=== PATIENT | male | born 1955 | race Hispanic/Latino ===

== ENCOUNTER → 2024-01-24 | Outpatient (CLI) | payer MEDICARE ==
[~2024-01-24] MED LIST: ASPI-1197 PO; ATEN50TA PO; ATOR10 PO; AZIT250T9 PO; CLOP75TA32 PO; EMPA25TA PO; GLIP10TA9 PO; ICOS1CAP PO; INSU100V37 SQ; ISOS30TA11 PO; METF-446 PO; OMEP40CA21 PO; PIOG30TA70 PO; RANO500T2 PO; SACU1TAB PO; SEMA2PEN SQ; VERI2.5T PO
== END | disposition home or self-care (01) ==
LOC: RAH 10:10
PROVIDERS: ATTEND Internal Medicine Gastroenterology
DX: K30 Functional dyspepsia (principal); R11.0 Nausea; R10.10 Upper abdominal pain, unspecified; R14.2 Eructation
CPT/HCPCS: 78264; A9541

== ENCOUNTER 2024-10-27 20:27 | Emergency (ER) | payer MEDICARE ==
[~2024-10-27] VITALS: Ht 170.2 cm; Wt 119.7 kg
[~2024-10-27 20:27] MED LIST changes: +GLIP10TA16 PO; -GLIP10TA9 PO
[2024-10-27 21:10] LABS: BASOPHILS # (AUTO) 0.03 K/uL (0.00-0.20); BASOPHILS % (AUTO) 0.2 % (0.0-5.0); IMMATURE GRANULOCYTE ABSOLUTE 0.06 K/uL (0-1); LYMPHOCYTES # (AUTO) 1.4 K/uL (1.0-4.8); LYMPHOCYTES % (AUTO) 9.1 % (21.0-51.0); MEAN CORPUSCULAR VOLUME 93.7 fL (79-99); MONOCYTES # (AUTO) 0.9 K/uL (0.1-1.0); MONOCYTES % (AUTO) 5.9 % (3.0-13.0); NEUTROPHILS # (AUTO) 12.6 K/uL (1.8-7.7); NEUTROPHILS % (AUTO) 84.4 % (40.0-77.0); PLATELET COUNT (AUTO) 201 K/uL (130-400); RED BLOOD CELL COUNT(AUTO) 4.91 MIL/uL (4.50-6.20); RED CELL DISTRIBUTION WIDTH 12.8 % (11.0-15.5)
[2024-10-27 21:19] LABS: CREATININE 0.8 mg/dL (0.5-1.3); POTASSIUM 4.2 mmol/L (3.5-5.1)
[2024-10-27 21:23] LABS: ALBUMIN 3.5 g/dL (3.5-5.0); BILIRUBIN,TOTAL 0.7 mg/dL (0.2-1.0); TOTAL PROTEIN, SERUM 7.8 g/dL (6.0-8.3)
--- NOTE | 2024-10-27 21:41 | ERN ---
General Chief Complaint: Shortness of Breath Stated Complaint: SENT BY Time Seen by MD: 20:34 History of Present Illness Initial Comments Patient is sent over here by his primary care physician for shortness of breath. Patient himself feels like he has no chest pain he has no difficulty breathing and he does not think that he is having a problem with his heart. He has had nausea and diarrhea but no emesis. He said it started this morning after he ate something that disagreed with him. No fevers no chills no change in urination. Patient here in the emergency room is tachycardic to 107. Allergies: Coded Allergies: No Known Allergies (Unverified Allergy, Unknown, 10/27/24) Home Meds Reported Medications Glipizide (Glipizide) 10 Mg Tablet, 10 MG PO BID, TAB 11/19/23 Insulin Degludec (Tresiba) 100 Unit/Ml Vial, 100 UNIT SQ AM, VIAL 11/19/23 Semaglutide (Ozempic) 2 Mg/0.75 Ml (8 Mg/3 Ml) Pen.injctr, 2 MG SQ QWEEK 11/19/23 Azithromycin (Azithromycin) 250 Mg Tablet, 250 MG PO AM, TAB 24 Aspirin (Aspirin) 81 Mg Tab.chew, 81 MG PO AM, TAB.CHEW 11/19/23 Icosapent Ethyl (Vascepa) 1 Gram Capsule, 1 GM PO BID, CAP 11/19/23 Omeprazole (Omeprazole) 40 Mg Capsule.dr, 40 MG PO PM, CAP 11/19/23 Vericiguat (Verquvo) 2.5 Mg Tablet, 2.5 MG PO AM, TAB 11/19/23 Empagliflozin (Jardiance) 25 Mg Tablet, 25 MG PO AM, TAB 24 Ranolazine (RANEXA) 500 Mg Tab.er.12h, 500 MG PO BID, TAB 24 Pioglitazone HCl (Pioglitazone HCl) 30 Mg Tablet, 30 MG PO AM, TAB 24 Atenolol (Atenolol) 50 Mg Tablet, 50 MG PO BID, TAB 24 Sacubitril/Valsartan (Entresto 24 mg-26 mg Tablet) 24 Mg-26 Mg Tablet, 1 EACH PO BID, TAB 24 Isosorbide Dinitrate (Isosorbide Dinitrate) 30 Mg Tablet, 30 MG PO AM, TAB 11/19/23 Atorvastatin Calcium (LIPITOR) 20 Mg Tab, 20 MG PO HS, TAB 11/19/23 Clopidogrel Bisulfate (Clopidogrel) 75 Mg Tablet, 75 MG PO AM, TAB 11/19/23 Metformin HCl (Metformin HCl) 1,000 Mg Tablet, 1000 MG PO BID, TAB 11/19/23 Past Medical History Past Medical History: Diabetes-Type II, High Cholesterol, Heart Disease, Hypertension, Other Medical History Other: QUADRUPLE BYPASS (2000) Past Surgical History: Pacer/AICD, Other Surgical History Other: QUADRUPLE BYPASS (2000) Constitutional: (+) chills, (+) fever EENTM: (-) eye pain, (-) blurred vision, (-) tearing, (-) double vision, (-) ear pain, (-) ear discharge, (-) nose pain, (-) nose congestion, (-) throat pain, (-) Throat swelling, (-) mouth pain, (-) tooth pain, (-) mouth swelling, (-) other documentation Respiratory: (-) cough, (-) orthopnea, (-) short of breath, (-) stridor, (-) wheezing, (-) other documentation Cardiovascular: (-) chest pain, (-) edema, (-) palpitations, (-) syncope, (-) dyspnea on exertion, (-) other documentation Gastrointestinal/Abdominal: (+) nausea, (+) diarrhea Physical Exam General Appearance: (+) mild distress Orientation: (+) alert, (+) oriented x 3 Head/Face Trauma: No Eye: bilateral eye normal inspection, bilateral eye PERRL, bilateral eye EOMI Ear, Nose, Throat: (+) hearing grossly normal, (+) normal ENT inspection, (+) moist mucous membraine Neck: (+) normal inspection, (+) supple, (+) full range of motion Respiratory: (+) chest non-tender, (+) lungs clear, (+) well ventilated Heart: (+) no gallop, (+) tachycardia Vascular: (+) no edema, (+) normal peripheral pulse Gastrointestinal: (+) soft, (+) non-tender, (+) bowel sound present Gastrointestinal Comment Hyperactive bowel sounds. Extremities: (+) normal range of motion, (+) non-tender, (+) normal inspection Results Laboratory and Microbiology Lab and Micro Result Laboratory Tests Test 10/27/24 21:01 10/27/24 21:07 10/27/24 22:02 White Blood Count 15.0 K/uL (4.8-10.8) H Red Blood Count 4.91 MIL/uL (4.50-6.20) Hemoglobin 15.2 g/dL (14.0-18.0) Hematocrit 46.0 % (42-54) Mean Corpuscular Volume 93.7 fL (79-99) Mean Corpuscular Hemoglobin 31.0 pg (27.0-33.0) Mean Corpuscular Hemoglobin Concent 33.0 g/dL (32.0-36.0) Red Cell Distribution Width 12.8 % (11.0-15.5) Platelet Count 201 K/uL (130-400) Mean Platelet Volume 9.6 fL (7.5-10.5) Immature Granulocyte % (Auto) 0.4 % (0-1) Neutrophils (%) (Auto) 84.4 % (40.0-77.0) H Lymphocytes (%) (Auto) 9.1 % (21.0-51.0) L Monocytes (%) (Auto) 5.9 % (3.0-13.0) Eosinophils (%) (Auto) 0.0 % (0.0-8.0) Basophils (%) (Auto) 0.2 % (0.0-5.0) Neutrophils # (Auto) 12.6 K/uL (1.8-7.7) H Lymphocytes # (Auto) 1.4 K/uL (1.0-4.8) Monocytes # (Auto) 0.9 K/uL (0.1-1.0) Eosinophils # (Auto) 0.00 K/uL (0.00-0.70) Basophils # (Auto) 0.03 K/uL (0.00-0.20) Absolute Immature Granulocyte (auto 0.06 K/uL (0-1) Nucleated Red Blood Cells 0.0 % (0.0-0.19) White Cell Morphology Comment See comments Sodium Level 135 mmol/L (136-145) L Potassium Level 4.2 mmol/L (3.5-5.1) Chloride Level 100 mmol/L (101-111) L Carbon Dioxide Level 28 mmol/L (21-32) Blood Urea Nitrogen 14 mg/dL (7-18) Creatinine 0.8 mg/dL (0.5-1.3) Glomerular Filtration Rate Calc 97 mL/min (>90) Random Glucose 234 mg/dL (70-105) H Total Calcium 8.5 mg/dL (8.5-10.1) Total Bilirubin 0.7 mg/dL (0.2-1.0) Aspartate Amino Transf (AST/SGOT) 16 U/L (10-37) Alanine Aminotransferase (ALT/SGPT) 25 U/L (12-78) Alkaline Phosphatase 59 U/L (50-136) Troponin I High Sensitivity 10 ng/L (4-75) Total Protein 7.8 g/dL (6.0-8.3) Albumin 3.5 g/dL (3.5-5.0) B-Type Natriuretic Peptide 64 pg/mL (0-100) Procalcitonin 0.22 ng/mL (0.05-0.5) Urine Color YELLOW (YELLOW) Urine Appearance CLEAR (CLEAR) Urine pH 5.0 (5.0-8.0) Urine Specific [place] 1.035 (1.001-1.031) Urine Protein 20 mg/dL (NEGATIVE) H Urine Glucose (UA) >=1000 mg/dL (NEGATIVE) H Urine Ketones 10 mg/dL (NEGATIVE) H Urine Occult Blood NEGATIVE (NEGATIVE) Urine Nitrate NEGATIVE (NEGATIVE) Urine Bilirubin NEGATIVE mg/dL (NEGATIVE) Urine Urobilinogen 0.2 mg/dL (0.2-1.0) Urine Leukocyte Esterase 75 [place]/uL (NEGATIVE) H Urine RBC 6-10 /HPF (0-1) H Urine WBC 11-25 /HPF (0-1) H Urine Squamous Epithelial Cells RARE /HPF (0-2) Urine Bacteria RARE /HPF (None Seen) Labs Reviewed?: Yes MDM Preliminary labs are back on the patient showing a white blood cell count and a left shift. I will give the patient fluid as he is most likely dehydrated. The patient does agree with me that he thinks it is more a stomach problems and a chest problem. However given his diabetes and his history of bypass surgery it behooves us to rule out cardiac cause of his symptoms. Cardiac enzymes and EKG ordered. Cardiac enzymes are normal. His EKG shows sinus tachycardia with some borderline T-wave abnormalities. Those same T-wave abnormalities are present on an EKG from April of 2012. I will bolused the patient a L of LR. I will get a UA just to be safe. Procalcitonin to rule out bacterial infection. Chest x-ray as well. Patient's procalcitonin is slightly elevated. Patient's cardiac enzymes are normal. Urine does have some leukocyte esterase activity in it. I will discharge the patient with a prescription for Keflex for his UTI. He can be discharged once the fluid boluses complete. ED Course Orders Procedure Category Date Status Time Cbc With Differential LAB 10/27/24 Complete 21:04 Comprehensive LAB 10/27/24 Complete Metabolic Panel 21:04 Troponin I High LAB 10/27/24 Complete Sensitivity 21:04 12 Lead Ekg Tracing- EKG 10/27/24 Logged Technical 21:04 Urinalysis Profile LAB 10/27/24 Complete 21:41 Lactated Ringers PHA 10/27/24 Complete 1000ml (Lactated 21:41 Procalcitonin LAB 10/27/24 Complete 21:41 B-Type Natriuretic LAB 10/27/24 Complete Peptide 21:41 Chest 1vw RAD 10/27/24 Taken 21:41 Culture Urine MARY 10/27/24 In Process 22:20 Current Medications Medications (Trade) Dose Ordered Sig/Alexey Route PRN Reason Start Time Stop Time Status Last Admin Dose Admin Lactated Ringer's (Lactated Ringers 1000ml) 1,000 ml BOLUS STAT IV 10/27/24 21:41 10/27/24 21:44 DC 10/27/24 21:56 Vital Signs Date Time Temp Pulse Resp B/P (MAP) Pulse Ox O2 Delivery O2 Flow Rate FiO2 10/27/24 21:10 109 18 118/54 95 Room Air* 0 21 10/27/24 20:35 99.7 110 24 129/66 92 Room Air DX & DISP Disposition: Discharge Departure Impression: Primary Impression: UTI (urinary tract infection) Additional Impression: Gastroenteritis Condition: Stable Scripts Cephalexin Monohydrate (Keflex) 500 Mg Cap 500 MG PO QID for 7 Days, #28 CAP Prov: ANASTASIYA NI MD 10/27/24 Additional Instructions: You have a possible urinary tract infection. Whether it is secondary to the gastroenteritis with the cause of your feeling like you have gastroenteritis is not clear. In either case I am discharging you with a prescription for Keflex for seven days. Please return to the emergency room if you have difficulty keeping fluids or food down. Or if you start having fevers feeling lightheaded or if urinary symptoms get worse. Referrals: ISAAK ORNELAS JR., MD (PCP) ANASTASIYA NI MD Oct 27, 2024 21:40
[2024-10-27] MEDS: LACTATED RINGERS 1000ML IV STA (21:56)
[2024-10-27 22:19] LABS: ADD UA MICROSCOPIC YES; APPEARANCE,URINE CLEAR (CLEAR); BILIRUBIN,URINE NEGATIVE (NEGATIVE); COLOR,URINE YELLOW (YELLOW); GLUCOSE, URINE (UA) >=1000 mg/dL (NEGATIVE); KETONES,URINE 10 mg/dL (NEGATIVE); LEUKOCYTE ESTERASE ,URINE 75 Leu/uL (NEGATIVE); NITRATE,URINE NEGATIVE (NEGATIVE); OCCULT BLOOD,URINE NEGATIVE (NEGATIVE); PROTEIN,URINE 20 mg/dL (NEGATIVE); UROBILINOGEN,URINE 0.2 mg/dL (0.2-1.0)
[2024-10-27 22:20] LABS: BACTERIA,URINE RARE /HPF (None Seen); MUCUS,URINE RARE LPF (None Seen); SQUAMOUS EPITHELIAL CELL,UR RARE /HPF (0-2)
[2024-10-27] MEDS ORDERED: CEPH500B PO (22:39)
[2024-10-27 22:50] VITALS: BP 108/59; PULSE 99; RESP 18; TEMP 98.7; O2SAT 94
--- NOTE | 2024-10-28 06:31 | EKG ---
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
--- NOTE | 2024-10-28 09:33 | HMCIMG ---
CHEST 1VW REASON: sob COMPARISON: 05/19/2012 FINDINGS: Single view of the chest was obtained. Lungs are clear. Heart size is normal. There is no pulmonary vascular congestion. Mediastinum and bony thorax appear unremarkable. There is a left-sided pacemaker. There is been a previous median sternotomy. IMPRESSION: 1. No acute finding.
== END 2024-10-27 23:03 | disposition home or self-care (01) ==
LOC: EDH 20:27
DX: N39.0 Urinary tract infection, site not specified (principal); K52.9 Noninfective gastroenteritis and colitis, unspecified; E11.9 Type 2 diabetes mellitus without complications; E78.00 Pure hypercholesterolemia, unspecified; I10 Essential (primary) hypertension; Z79.84 Long term (current) use of oral hypoglycemic drugs; Z79.85 Long-term (current) use of injectable non-insulin antidiabetic drugs; Z79.899 Other long term (current) drug therapy; Z95.810 Presence of automatic (implantable) cardiac defibrillator
CPT/HCPCS: 99285; 71045; 84484; 80053; 83880; 85025; 87086; 81001; 36415; 93005; 84145; J7120; 99284